=== PATIENT | male | born 1940 | race Caucasian/White ===

== ENCOUNTER → 2018-08-18 | Outpatient (CLI) | payer OTHER ==
[~2018-08-18] MED LIST: ASPI81CH PO; ATOR20; ATOR40TA PO; ATOR80 PO; Aspir 8181 MG PO; BENAML10/5 PO; BRILINTA90 MG PO; CIPR500 PO; CLOP75 PO; Cipro500 MG PO; Cleocin HCl300 MG PO; FINA5 PO; HYDACE5 PO; HYDACE7.5; HYDR1TAB94 PO; Keflex500 MG PO; LAVAP17G PO; LEVO750 PO; LEVSOD50 PO; LOVA20 PO; METO25ER PO; MORP15ER; OMEP10ER; OMEP20ER PO; POLY17UD PO; Prilosec Otc20 MG PO; Pyridium200 MG PO; RXHYDACE PO; Super B Comple150 MG PO; TAMS.4ER PO; VALD20; VITAMIN D32000 UNI1 PO; Vibramycin100 MG PO
== END ==
LOC: LAB SHORT 09:30 → LAB 09:30
DX: R30.0 Dysuria (principal)
CPT/HCPCS: 87086

== ENCOUNTER 2019-01-02 07:34 | Day surgery (SDC) | payer OTHER ==
[~2019-01-02] VITALS: Ht 177.8 cm; Wt 75.6 kg
[~2019-01-02 07:34] MED LIST changes: +Aspirin EC81 MG PO; +GAVILAX17 GM; +LEVO-T50 MCG PO; +Nitrostat0.4 MG SL; +OMEPRAZOLE MAGN20 MG PO; +ROSU5 PO; +STAXYN10 MG PO; +VITAMIN D32000 UNIT PO
--- NOTE | 2019-01-02 09:01 | NUR ---
01/02/19 0901 Dandy Diaz PATIENT WITH IODINE ALLERGY BUT STATES BETADINE IS FINE. CARE WAS TAKEN TO RINSE OFF ALL BETADINE AFTER PREP.
== END 2019-01-02 09:58 | disposition home or self-care (01) ==
LOC: ORSCSDS 07:34
PROVIDERS: Ophthalmology
PROC: 08RJ3JZ Replacement of Right Lens with Synthetic Substitute, Percutaneous Approach (ICD-10-PCS; principal; 2019-01-02 09:00)
DX: H25.11 Age-related nuclear cataract, right eye (principal); I10 Essential (primary) hypertension; I25.10 Atherosclerotic heart disease of native coronary artery without angina pectoris; K21.9 Gastro-esophageal reflux disease without esophagitis; E03.9 Hypothyroidism, unspecified; Z79.899 Other long term (current) drug therapy
CPT/HCPCS: J2001; J2250; J3010; J3301; J7120; V2632

== ENCOUNTER → 2019-03-11 | Outpatient (CLI) | payer OTHER | END | disposition home or self-care (01) | LOC: LAB SHORT 11:18 → PLD 11:18 | DX: L57.0 Actinic keratosis (principal); D48.5 Neoplasm of uncertain behavior of skin | CPT/HCPCS: 88305 ==

== ENCOUNTER 2019-04-25 05:26 | Emergency (ER) | payer OTHER ==
[~2019-04-25] VITALS: Ht 177.8 cm; Wt 72.6 kg
== END 2019-04-25 07:23 | disposition home or self-care (01) ==
LOC: ER 05:26
DX: S10.86XA Insect bite of other specified part of neck, initial encounter (principal); W57.XXXA Bitten or stung by nonvenomous insect and other nonvenomous arthropods, initial encounter; Z88.0 Allergy status to penicillin; Z88.8 Allergy status to other drugs, medicaments and biological substances; Z79.899 Other long term (current) drug therapy; Z79.82 Long term (current) use of aspirin; I10 Essential (primary) hypertension; E03.9 Hypothyroidism, unspecified; Z85.46 Personal history of malignant neoplasm of prostate
CPT/HCPCS: 10120; 99282-25

== ENCOUNTER → 2020-04-15 | Outpatient (CLI) | payer OTHER | END | disposition home or self-care (01) | LOC: PLD 08:07 → LAB SHORT 08:07 | DX: L82.1 Other seborrheic keratosis (principal) | CPT/HCPCS: 88305 ==

== ENCOUNTER → 2022-03-21 | Outpatient (CLI) | payer OTHER | END | disposition home or self-care (01) | LOC: PLD 11:03 → LAB SHORT 11:03 | DX: L30.8 Other specified dermatitis (principal); L90.5 Scar conditions and fibrosis of skin | CPT/HCPCS: 88305; 88312 ==

== ENCOUNTER 2022-10-12 07:57 | Day surgery (SDC) | payer OTHER ==
[~2022-10-12] VITALS: Ht 175.3 cm; Wt 75.0 kg
[2022-10-12] MEDS ORDERED: LOSA50 PO (08:26)
[2022-10-12] MEDS ORDERED: Isosorbide Mono30 MG PO (08:27)
--- NOTE | 2022-10-12 12:30 | NUR ---
10CC AIR REMOVED FROM R WRIST TR BAND. -BLEEDING OR SWELLING.
--- NOTE | 2022-10-12 13:24 | NUR ---
R WRIST TR BAND REMOVED. PUNCTURE AREA CLEANED /C NS AND CLOTH DOT DRSG PLACED. R WRIST SPLINT REAPPLED. PT AND VERBALIZED UNDERSTANDING OF WRITTEN AND VERBAL D/C INST. PT TAKEN OUT OF THE HRT CENTER VIA W/C.
== END 2022-10-12 13:30 | disposition home or self-care (01) ==
LOC: MHTC 07:57
DX: I25.118 Atherosclerotic heart disease of native coronary artery with other forms of angina pectoris (principal); I10 Essential (primary) hypertension; Z88.0 Allergy status to penicillin; Z91.041 Radiographic dye allergy status; E78.00 Pure hypercholesterolemia, unspecified
CPT/HCPCS: 76937; 93454; A9270; C1769; C1887; C1894; J0171; J1200; J1644; J1720; J7030; J7040; Q9967

== ENCOUNTER 2023-02-16 07:49 | Day surgery (SDC) | payer OTHER ==
[~2023-02-16] VITALS: Ht 175.3 cm; Wt 71.7 kg
[~2023-02-16 07:49] MED LIST changes: -GAVILAX17 GM; +GUAI600T33 PO; +Isosorbide Mono30 MG PO; +LOSA50 PO; +MIRALAX17 GM PO
--- NOTE | 2023-02-16 11:00 | NUR ---
PATIENT ARRIVED TO RECOVERY ROOM UPRIGHT IN RECLINER, CONVERSING APPROPRIATELY. L CHEST DRESSING C/D/I. PATIENT DENYING ANY CHEST PAIN. VSS ON ROOM AIR.
--- NOTE | 2023-02-16 11:15 | NUR ---
PATIENT TOLERATING PO INTAKE WELL. L CHEST DRESSING C/D/I. VSS ON ROOM AIR. PRESENT AT BEDSIDE.
--- NOTE | 2023-02-16 11:22 | NUR ---
patient in rcliner. eating breakfast. ice pack in place to left upper chest pacer site.
--- NOTE | 2023-02-16 12:00 | NUR ---
CHEST X RAY AND EKG PERFORMED AND REVIEWED BY
--- NOTE | 2023-02-16 12:30 | NUR ---
DISCHARGE INSTRUCTIONS REVIEWED WITH PATIENT AND . FOLLOW UP APPOINTMENTS SCHEDULED. ALLL QUESTIONS WERE ANSWERED. L CHEST DRESSING D/I WITH SOME MINIMAL AMOUNT OF BLEEDING. ICE PACK IN PLACE. PT AMBULATING TO RESTROOM WITHOUT DIFFICULTY. VSS ON ROOM AIR.
--- NOTE | 2023-02-16 12:45 | NUR ---
PATIENT DISCHARGED HOME AT THIS TIME. PIV REMOVED WITHOUT DIFFICULTY, CATHETER INTACT. PATIENT BELONGINGS AND DISCHARGE PAPERWORK LEFT WITH PATIENT. L CHEST DRESSING D/I WITH MINIMAL AMOUNT OF BLEEDING.
== END 2023-02-16 13:00 | disposition home or self-care (01) ==
LOC: MHTC 07:49
DX: I25.118 Atherosclerotic heart disease of native coronary artery with other forms of angina pectoris (principal); I73.9 Peripheral vascular disease, unspecified; R55 Syncope and collapse; E78.5 Hyperlipidemia, unspecified; I45.5 Other specified heart block
CPT/HCPCS: 33208; 71046; 93005; 93010; C1785; C1894; C1898; J1644; J3370; J7030; J7040; J7050; Q9967

== ENCOUNTER 2023-02-18 09:21 | Emergency (ER) | payer OTHER ==
[~2023-02-18] VITALS: Ht 167.6 cm; Wt 81.7 kg
[2023-02-18 10:09] LABS: BASOPHILS ABSOLUTE AUTO 0.08 K/mm3 (0.00-0.23); BASOPHILS PERCENT AUTO 1 % (0-2); EOSINOPHILS ABSOLUTE AUTO 0.09 K/mm3 (0.00-0.68); EOSINOPHILS PERCENT AUTO 1 % (0-6); Hematocrit 38.8 % (37.0-53.0); Hemoglobin 12.7 g/dL (13.5-17.5); IMMATURE GRAN ABSOLUTE AUTO 0.06 K/mm3 (0.00-0.10); IMMATURE GRAN PERCENT AUTO 0 % (0-1); LYMPHOCYTES ABSOLUTE AUTO 8.77 K/mm3 (0.84-5.20); LYMPHOCYTES PERCENT AUTO 60 % (21-46); MONOCYTES ABSOLUTE AUTO 0.51 K/mm3 (0.16-1.47); MONOCYTES PERCENT AUTO 4 % (4-13); Mean Corpuscular HGB 31.6 pg (26.0-34.0); Mean Corpuscular HGB Conc 32.7 g/dL (31.5-36.5); Mean Corpuscular Volume 97 fL (80-100); Mean Platelet Volume 8.9 fL (9.1-12.4); NEUTROPHILS ABSOLUTE AUTO 5.01 K/mm3 (1.96-9.15); NEUTROPHILS PERCENT AUTO 35 % (41-73); NRBC ABSOLUTE 0.02 K/mm3 (0.00-0.02); NRBC Auto 0.1 /100 WBC (0.0-0.2); Platelet Count 149 K/mm3 (150-400); RDW Coefficient Variation 14.6 % (11.7-14.2); RDW Standard Deviation 52.3 fL (35.1-46.3); Red Blood Cell Count 4.02 M/mm3 (4.30-5.90); White Blood Cell Count 14.52 K/mm3 (4.00-11.30)
[2023-02-18 10:24] LABS: Albumin, Blood 3.3 g/dL (3.4-5.0); Albumin/Globulin Ratio 1.2 (0.8-1.8); Bilirubin, Total 0.4 mg/dL (0.1-1.0); Bun/Creatinine Ratio 16.2 (12.0-20.0); Calcium, Blood 9.2 mg/dL (8.5-10.1); Creatinine, Blood 0.92 mg/dL (0.60-1.20); Globulin, Blood 2.7 g/dL (2.2-4.0); Potassium, Blood 4.2 mmol/L (3.5-5.5)
[2023-02-18] MEDS ORDERED: ELIQUIS5 M2 PO (11:10)
== END 2023-02-18 12:03 | disposition home or self-care (01) ==
LOC: ER 09:21
PROVIDERS: Emergency Medicine
DX: I82.A12 Acute embolism and thrombosis of left axillary vein (principal); I10 Essential (primary) hypertension; Z95.1 Presence of aortocoronary bypass graft; Z95.5 Presence of coronary angioplasty implant and graft
CPT/HCPCS: 36415; 80053; 85025; 93971; 99284-25; A9270

== ENCOUNTER → 2023-06-22 | Outpatient (CLI) | payer OTHER ==
[~2023-06-22] MED LIST changes: +ELIQUIS5 M2 PO
== END | disposition home or self-care (01) ==
LOC: LAB 15:59 → LAB SHORT 15:59
DX: H92.13 Otorrhea, bilateral (principal)
CPT/HCPCS: 87070; 87077; 87205

== ENCOUNTER → 2023-09-27 | Outpatient (CLI) | payer OTHER | END | disposition home or self-care (01) | LOC: LAB SHORT 13:09 → LAB 13:09 | DX: H92.11 Otorrhea, right ear (principal) | CPT/HCPCS: 87102 ==

== ENCOUNTER → 2023-11-23 | Outpatient (CLI) | payer OTHER | LOC: LAB 12:10 → LAB SHORT 12:10 | DX: D04.5 Carcinoma in situ of skin of trunk (principal) | CPT/HCPCS: 88305 ==

== ENCOUNTER → 2024-08-29 | Outpatient (CLI) | payer OTHER ==
[2024-08-29 12:56] LABS: BASOPHILS ABSOLUTE AUTO 0.09 K/mm3 (0.00-0.23); BASOPHILS PERCENT AUTO 1 % (0-2); EOSINOPHILS ABSOLUTE AUTO 0.01 K/mm3 (0.00-0.68); EOSINOPHILS PERCENT AUTO 0 % (0-6); Hematocrit 28.7 % (37.0-53.0); Hemoglobin 9.1 g/dL (13.5-17.5); IMMATURE GRAN ABSOLUTE AUTO 0.13 K/mm3 (0.00-0.10); IMMATURE GRAN PERCENT AUTO 1 % (0-1); LYMPHOCYTES ABSOLUTE AUTO 4.37 K/mm3 (0.84-5.20); LYMPHOCYTES PERCENT AUTO 42 % (21-46); MONOCYTES ABSOLUTE AUTO 0.29 K/mm3 (0.16-1.47); MONOCYTES PERCENT AUTO 3 % (4-13); Mean Corpuscular HGB Conc 31.7 g/dL (31.5-36.5); Mean Corpuscular Volume 95 fL (80-100); NEUTROPHILS ABSOLUTE AUTO 5.47 K/mm3 (1.96-9.15); NEUTROPHILS PERCENT AUTO 53 % (41-73); Platelet Count 262 K/mm3 (150-400); RDW Coefficient Variation 14.2 % (11.7-14.2); RDW Standard Deviation 48.2 fL (35.1-46.3); Red Blood Cell Count 3.03 M/mm3 (4.30-5.90); White Blood Cell Count 10.36 K/mm3 (4.00-11.30)
[2024-08-29 15:47] LABS: International Normalized Ratio 0.95; Prothrombin Time Results 10.2 Sec (9.7-11.5)
== END | disposition home or self-care (01) ==
LOC: LAB 12:53 → LAB SHORT 12:53
PROVIDERS: Family Medicine
DX: M79.632 Pain in left forearm (principal); M79.89 Other specified soft tissue disorders
CPT/HCPCS: 85025; 85610

== ENCOUNTER 2025-03-31 06:12 | Emergency (ER) | payer MEDICARE ==
[~2025-03-31] VITALS: Ht 177.8 cm; Wt 77.1 kg
[2025-03-31] MEDS ORDERED: Ondansetron HCl 2 MG / ML 2ML Vial IV ONE (06:40)
[2025-03-31] MEDS ORDERED: BRUKINSA80 MG PO (07:26)
[2025-03-31] MEDS ORDERED: MECL25 PO (07:27)
[2025-03-31] MEDS ORDERED: ZINC15 PO (07:28)
[2025-03-31] MEDS ORDERED: IRON18 M1 PO (07:29)
[2025-03-31] MEDS ORDERED: SUPER B-50 COM1 EACH PO (07:29)
[2025-03-31] MEDS ORDERED: CALCIUM 600 +1 EA11 PO (07:30)
[2025-03-31] MEDS ORDERED: ALBU90OI INH (07:31)
[2025-03-31] MEDS ORDERED: Magnesium PO (07:35)
[2025-03-31] MEDS ORDERED: NS 1,000 ML IV SCH (08:00)
[2025-03-31 08:23] LABS: BASOPHILS ABSOLUTE AUTO 0.02 K/mm3 (0.00-0.23); BASOPHILS PERCENT AUTO 1 % (0-2); EOSINOPHILS ABSOLUTE AUTO 0.03 K/mm3 (0.00-0.68); EOSINOPHILS PERCENT AUTO 2 % (0-6); Hematocrit 38.8 % (37.0-53.0); Hemoglobin 12.8 g/dL (13.5-17.5); IMMATURE GRAN ABSOLUTE AUTO 0.03 K/mm3 (0.00-0.10); IMMATURE GRAN PERCENT AUTO 2 % (0-1); LYMPHOCYTES ABSOLUTE AUTO 0.77 K/mm3 (0.84-5.20); LYMPHOCYTES PERCENT AUTO 40 % (21-46); MONOCYTES ABSOLUTE AUTO 0.22 K/mm3 (0.16-1.47); MONOCYTES PERCENT AUTO 11 % (4-13); Mean Corpuscular HGB 30.6 pg (26.0-34.0); Mean Corpuscular Volume 93 fL (80-100); Mean Platelet Volume 9.4 fL (9.1-12.4); NEUTROPHILS ABSOLUTE AUTO 0.88 K/mm3 (1.96-9.15); NEUTROPHILS PERCENT AUTO 45 % (41-73); Platelet Count 195 K/mm3 (150-400); RDW Coefficient Variation 13.5 % (11.7-14.2); RDW Standard Deviation 45.9 fL (35.1-46.3); Red Blood Cell Count 4.18 M/mm3 (4.30-5.90); White Blood Cell Count 1.95 K/mm3 (4.00-11.30)
[2025-03-31 08:36] LABS: Alanine Aminotransfer (ALT/SGP 22 U/L (12-78); Albumin, Blood 3.4 g/dL (3.4-5.0); Albumin/Globulin Ratio 1.2 (0.8-1.8); Alk Phos 129 U/L (50-136); Anion Gap 8 mmol/L (3-11); Aspartate Aminotrans (AST/SGOT 18 U/L (12-37); Bilirubin, Direct <0.1 mg/dL (0.0-0.3); Bilirubin, Indirect Unable to Calculate mg/dL (0.1-0.7); Bilirubin, Total 0.3 mg/dL (0.1-1.0); Blood Urea Nitrogen 23 mg/dL (8-24); Bun/Creatinine Ratio 24.9 (12.0-20.0); CO2, Blood 27 mmol/L (21-32); Calcium, Blood 8.9 mg/dL (8.5-10.1); Chloride, Blood 110 mmol/L (98-108); Creatinine, Blood 0.92 mg/dL (0.60-1.20); Globulin, Blood 2.8 g/dL (2.2-4.0); Glomerular Filtration Rate 82 (60-); Glucose, Blood 152 mg/dL (70-99); Potassium, Blood 4.1 mmol/L (3.5-5.5); Sodium, Blood 141 mmol/L (136-145); Total Protein, Blood 6.2 g/dL (6.4-8.2)
[2025-03-31] MEDS ORDERED: Prochlorperazine Edisylate 10 mg Vial IV ONE (08:40)
[2025-03-31] MEDS ORDERED: DiphenhydrAMINE HCl 50 MG/ML 1ML Vial IV ONE (09:10)
[2025-03-31] MEDS ORDERED: MethylPREDNISolone Sod Succ 125 MG Vial IV ONE (09:10)
[2025-03-31] MEDS ORDERED: ONDA4ODT MM (11:20)
[2025-03-31] MEDS ORDERED: REGLAN1013 PO (11:20)
[2025-03-31 11:52] VITALS: BP 152/73
== END 2025-03-31 12:44 | disposition home or self-care (01) ==
LOC: ER 06:12
PROVIDERS: Student in an Organized Health Care Education/Training Program
DX: R11.2 Nausea with vomiting, unspecified (principal); E86.0 Dehydration; C91.10 Chronic lymphocytic leukemia of B-cell type not having achieved remission; D72.819 Decreased white blood cell count, unspecified; I10 Essential (primary) hypertension; E03.9 Hypothyroidism, unspecified; E78.5 Hyperlipidemia, unspecified; Z79.01 Long term (current) use of anticoagulants; Z79.890 Hormone replacement therapy; Z79.899 Other long term (current) drug therapy; Z88.0 Allergy status to penicillin; Z88.8 Allergy status to other drugs, medicaments and biological substances
CPT/HCPCS: 74177; 80048; 80076; 83690; 85025; 93005; 93010; 96374; 96375; 99284-25; J0780; J1200; J2405; J2919; J7030; Q9967

== ENCOUNTER 2025-07-01 10:21 | Emergency (ER) | payer MEDICARE ==
[~2025-07-01] VITALS: Ht 175.3 cm; Wt 74.8 kg
[~2025-07-01 10:21] MED LIST changes: +ALBU90OI INH; +BRUKINSA80 MG PO; +CALCIUM 600 +1 EA11 PO; +ELIQUIS2.5 M1 PO; +IRON18 M1 PO; -LEVO-T50 MCG PO; +LEVSOD75 PO; +MECL25 PO; +Magnesium PO; -OMEPRAZOLE MAGN20 MG PO; +ONDA4ODT MM; +REGLAN1013 PO; +SUPER B-50 COM1 EACH PO; +ZINC15 PO
[2025-07-01 11:14] LABS: BASOPHILS ABSOLUTE AUTO 0.04 K/mm3 (0.00-0.23); BASOPHILS PERCENT AUTO 1 % (0-2); EOSINOPHILS ABSOLUTE AUTO 0.04 K/mm3 (0.00-0.68); EOSINOPHILS PERCENT AUTO 1 % (0-6); Hematocrit 31.5 % (37.0-53.0); Hemoglobin 10.2 g/dL (13.5-17.5); IMMATURE GRAN ABSOLUTE AUTO 0.10 K/mm3 (0.00-0.10); IMMATURE GRAN PERCENT AUTO 1 % (0-1); LYMPHOCYTES ABSOLUTE AUTO 3.42 K/mm3 (0.84-5.20); LYMPHOCYTES PERCENT AUTO 43 % (21-46); MONOCYTES ABSOLUTE AUTO 0.22 K/mm3 (0.16-1.47); MONOCYTES PERCENT AUTO 3 % (4-13); Mean Corpuscular HGB Conc 32.4 g/dL (31.5-36.5); Mean Corpuscular Volume 89 fL (80-100); NEUTROPHILS ABSOLUTE AUTO 4.12 K/mm3 (1.96-9.15); NEUTROPHILS PERCENT AUTO 52 % (41-73); NRBC ABSOLUTE 0.00 K/mm3 (0.00-0.02); NRBC Auto 0.0 /100 WBC (0.0-0.2); Platelet Count 231 K/mm3 (150-400); RDW Coefficient Variation 16.5 % (11.7-14.2); RDW Standard Deviation 54.3 fL (35.1-46.3)
[2025-07-01 11:19] LABS: Alanine Aminotransfer (ALT/SGP 19.0 U/L (12-78); Albumin, Blood 3.0 g/dL (3.4-5.0); Albumin/Globulin Ratio 1.0 (0.8-1.8); Anion Gap 13.0 mmol/L (3-11); Aspartate Aminotrans (AST/SGOT 21.0 U/L (12-37); Bilirubin, Total 0.4 mg/dL (0.1-1.0); Blood Urea Nitrogen 13.0 mg/dL (8-24); CO2, Blood 20.0 mmol/L (21-32); Calcium, Blood 8.4 mg/dL (8.5-10.1); Chloride, Blood 113.0 mmol/L (98-108); Creatinine, Blood 0.85 mg/dL (0.60-1.20); Globulin, Blood 2.9 g/dL (2.2-4.0); Glucose, Blood 122.0 mg/dL (70-99); Potassium, Blood 4.3 mmol/L (3.5-5.5); Sodium, Blood 142.0 mmol/L (136-145); Total Protein, Blood 5.9 g/dL (6.4-8.2)
[2025-07-01] MEDS ORDERED: Dexamethasone Sod Phos 10 MG/ML 1ML VIAL IV ONE (11:45)
[2025-07-01] MEDS ORDERED: DiphenhydrAMINE HCl 50 MG/ML 1ML Vial IV ONE (11:45)
[2025-07-01 14:00] VITALS: BP 207/62
== END 2025-07-01 14:15 | disposition home or self-care (01) ==
LOC: ER 10:21
DX: T88.59XA Other complications of anesthesia, initial encounter (principal); R06.02 Shortness of breath; T41.45XA Adverse effect of unspecified anesthetic, initial encounter; I48.91 Unspecified atrial fibrillation; D64.9 Anemia, unspecified; I10 Essential (primary) hypertension; E03.9 Hypothyroidism, unspecified; E78.5 Hyperlipidemia, unspecified; Z85.46 Personal history of malignant neoplasm of prostate; Z90.79 Acquired absence of other genital organ(s); Z86.718 Personal history of other venous thrombosis and embolism; Z88.0 Allergy status to penicillin; Z91.041 Radiographic dye allergy status; Z88.8 Allergy status to other drugs, medicaments and biological substances; Z79.890 Hormone replacement therapy; Z79.01 Long term (current) use of anticoagulants; Z79.899 Other long term (current) drug therapy
CPT/HCPCS: 71046; 71260; 80053; 83880; 85025; 93971; J1100; J1200; Q9967